=== PATIENT | female | born 1995 | race Caucasian/White ===

== ENCOUNTER → 2018-09-02 | Outpatient (CLI) | payer BC ==
--- NOTE | 2018-09-02 11:02 | Diagnostic Imaging Report ---
PROCEDURE: CT head without contrast. TECHNIQUE: Multiple contiguous axial images were obtained through the brain without the use of intravenous contrast. Auto Exposure Controls were utilized during the CT exam to meet ALARA standards for radiation dose reduction. INDICATION: Acute onset dizziness FINDINGS: Ventricles and sulci are within normal limits for size. There is no intracranial hemorrhage identified. There is no abnormal mass effect or shift of midline structures. IMPRESSION: Unremarkable CT of the head. Dictated by: Dictated on workstation # [id number]
== END ==
LOC: RAD 10:32
PROVIDERS: ATTEND Pediatrics
DX: R42 Dizziness and giddiness (principal)
CPT/HCPCS: 70450

== ENCOUNTER → 2019-01-29 | Outpatient (CLI) | payer BC ==
--- NOTE | 2019-01-29 09:41 | Diagnostic Imaging Report ---
INDICATION: Left hip pain. Time of exam: 8:56 AM AP view of the pelvis was obtained. Femoral acetabular alignment is normal. Both femoral heads and necks are intact. Rami appear intact. No fractures are seen. IUD in the midline of the pelvis is noted. IMPRESSION: No acute bony abnormality is detected. Dictated by: Dictated on workstation # [id number]
--- NOTE | 2019-01-29 09:41 | Diagnostic Imaging Report ---
INDICATION: Left hip pain. Time of exam: 8:56 AM 3 views of the left hip were obtained. Curvature and alignment is normal. Vertebral body heights and disc spaces are well-maintained. No fracture or subluxation is seen. IMPRESSION: No acute bony abnormality is detected. Dictated by: Dictated on workstation # [id number]
== END ==
LOC: RAD 08:32
PROVIDERS: ATTEND Nurse Practitioner Family
DX: M25.552 Pain in left hip (principal); M54.9 Dorsalgia, unspecified; R10.2 Pelvic and perineal pain
CPT/HCPCS: 72100; 72170